=== PATIENT | male | born 1980 | race Two or more races ===

== ENCOUNTER 2024-08-11 23:19 | Emergency (ER) | payer BC, SELFPAY ==
[2024-08-12 00:05] LABS: % Basophils 0.2 % (0-2); % Eosinophils 0.6 % (0-6); % Immature Granulocytes 0.2 % (0-0.5); % Lymphocytes 17.3 % (20.5-51.1); % Monocytes 8.3 % (1.7-9.3); % Neutrophils 73.4 % (42.2-75.2); Absolute Eosinophils 0.1 10^3/uL (0-0.7); Absolute Lymphocytes 1.4 10^3/uL (1.2-3.4); Absolute Monocytes 0.7 10^3/uL (0.1-0.6); Absolute Neutrophils 5.9 10^3/uL (1.4-6.5); Hematocrit 41.4 % (39.0-52.0); Hemoglobin 14.3 g/dL (13.0-18.0); Mean Corp Hgb Conc. 34.5 g/dL (33.0-37.0); Mean Corpuscular Hgb 31.2 pg (27.0-31.0); Mean Corpuscular Volume 90.4 fL (80.0-94.0); Nucleated Red Blood Cells % 0 % (-); Platelet Count 178 10^3/uL (130-400); Red Blood Cell Count 4.58 10^6/uL (4.70-6.10); Red Cell Dist. Width 12.8 % (11.5-14.5)
[2024-08-12 00:23] LABS: ALT (SGPT) 31 U/L (0-50); AST (SGOT) 24 U/L (17-59); Albumin 4.6 g/dl (3.5-5.0); Alkaline Phosphatase 38 U/L (38-126); Blood Urea Nitrogen 17 mg/dl (9-20); Carbon Dioxide 28 mmol/L (22-30); Chloride 104 mmol/L (98-107); Glucose 148 mg/dl (70-99); Lipase 266 U/L (23-300); Potassium 3.7 mmol/L (3.5-5.1); Sodium 139 mmol/L (135-145); Total Bilirubin 1.2 mg/dl (0.2-1.3); Total Protein 7.3 g/dl (6.3-8.2); eGFR > 60.00
[2024-08-12 00:33] LABS: Troponin I < 0.012 ng/ml
[2024-08-12 03:03] VITALS: BP 115/80
[2024-08-12 04:00] VITALS: BP 111/79
[2024-08-12] MEDS: CARAFATE SUSPENSION 1 GM PO (04:04)
[2024-08-12 04:49] LABS: Troponin I < 0.012 ng/ml
--- NOTE | 2024-08-12 05:42 | ED.GENMED ---
History of Present Illness
General
Chief Complaint: Abdominal Pain
Time Seen by Provider: 08/12/24 03:28
Past History
Past History
ED Past Medical History: Other (Latent tuberculosis, rheumatoid arthritis)
ED Past Surgical History: Other (Perianal fistula)
Social History
Tobacco: Non-smoker
Alcohol: None
Drug: None
Sepsis
Sepsis Screen
Sepsis Screen: Possible Sepsis
Date: 08/12/24
Time: 05:42
Course
Orders/Labs/Results
Orders:
Orders
08/11/24 23:45
EKG [Electrocardiogram (*1)] Urgent
Reason for Study: Chest Pain
EKG- Treatment ONCE
08/11/24 23:59
Complete Blood Count/With Diff Urgent
Comprehensive Metabolic Panel Urgent
Lipase Urgent
Troponin I Urgent
08/12/24 03:48
Electrocardiogram (*1) Urgent
Reason for Study: Chest Pain
EKG- Treatment ONCE
Sucralfate Suspension [Carafate Suspension] 1 gm PO NOW STA
08/12/24 04:11
Troponin I Urgent
08/12/24 04:21
CR Abdomen - 1 View Urgent
Comment:
Reason For Exam: abd pain
CR Chest - 2 Views Urgent
Comment:
Reason For Exam: cp
08/12/24 04:50
US Abdomen Limited Urgent
Comment:
Reason For Exam: ruq abd pain
Abnormal Lab Results
08/11/24
23:59
RBC 4.58 L 10^6/uL
(4.70-6.10)
MCH 31.2 H pg
(27.0-31.0)
MPV 11.0 H fL
(7.4-10.4)
Absolute Monos (auto) 0.7 H 10^3/uL
(0.1-0.6)
Lymphocytes % 17.3 L %
(20.5-51.1)
Glucose 148 H mg/dl
(70-99)
08/11/24 23:59
08/11/24 23:59
Vital Signs
Initial and Last Documented VS:
Initial Vital Signs
Temp Pulse Resp Pulse Ox
99.7 F 80 18 100
08/11/24 23:39 08/11/24 23:39 08/11/24 23:39 08/11/24 23:39
Last Documented Vital Signs
Temp Pulse Resp BP Pulse Ox
99.7 F 61 20 115/80 98
08/11/24 23:39 08/12/24 03:45 08/12/24 03:45 08/12/24 03:03 08/12/24 03:45
Update Note
Update Note:
NAME: ENA GILLESPIE
DATE OF EXAM: 08/12/2024
Patient No: [id number]
Physician: ARIEL
Date of : 1980
Past Medical History (entered by Technologist):
Reason For Exam (entered by Technologist):
Other Notes (entered by Technologist):
Additional Information (per [facility]):
ULTRASOUND ABDOMEN LIMITED
COMPARISON: None
IMPRESSION:
Gallbladder is normal. No stones or wall thickening.
Sonographic Zarate's sign could not be assessed because the patient received pain medication prior to ultrasound.
Common bile duct measures 4 mm.
Liver echogenicity and echotexture are normal.
No hydronephrosis in the visualized right kidney.
Case results were faxed/electronically transmitted at [phone] EST. If there are any questions please feel free to contact me directly at [phone], ext [phone]. If you cannot reach me at this number, do not leave a voicemail. Please call [phone]
ext [phone] and ask for the next available radiologist.
ED Attending Note
-
Portions of this chart may have been created with voice recognition software.� Occasional wrong word or��sound alike� substitutions may have occurred due to the inherent limitations of voice recognition software.
Discharge Plan
Departure
Patient Disposition: Home (Routine Discharge)
Date of Disposition: 08/12/24
Time of Disposition: 05:42
Patient with high blood pressure during this ER visit?: No
Condition: Good
Discharge Problem:
Abdominal pain
Instructions: Abdominal Pain
Prescriptions:
New
sucralfate [Carafate] 100 mg/mL suspension
10 ml PO QID Qty: 200 0RF
Referrals:
UNKNOWN - PT DOES,NOT KNOW [Family Provider]
Activity Restrictions/Additional Instructions:
Thank You for choosing [facility].
It was a pleasure meeting you and taking part in your care. We hope for your continued healing and wellness.
Please read discharge instructions in their entirety. However, they are for general education and may not describe your exact diagnosis at discharge. Information on your ER visit and medical conditions were discussed with you along with appropriate
follow up information...
If indicated, please take your medications as instructed and indicated on discharge paperwork.
Please schedule a follow up appointment as directed. Call to schedule an appointment
Please return to the emergency department with ANY change in, persisting, or worsening of symptoms. If any of your symptoms do not improve, or persist, or become more severe within 6-12 hours, please return to the emergency department for further
care.
Please return to the emergency department if you develop a headache, neck pain/stiffness, fever greater than 100.4F, chest pain, shortness of breath, persistent nausea, vomiting, slurred speech, difficulty walking, numbness/tingling, weakness, signs
of infection or any other symptoms that are worrisome to you.
If you have any questions or concerns please do not hesitate to call the Hospital at or E-mail me directly at [email or web address]
Interventions
Interventions:
*Risk Screen - Suicide Last Done: 08/11/24 23:44
*General Assessment Last Done: 08/11/24 23:39
*Neglect/Abuse Screening Last Done: 08/12/24 02:53
*ED- Fall Risk Assessment Last Done: 08/12/24 02:53
*ED COVID-19 Vaccine History Last Done: 08/12/24 02:53
HY-Qplhco-Czmphtqnbm Assessment Last Done: 08/12/24 03:03
Discharge Date and Time
Print Language: MALIAN
== END 2024-08-12 05:56 | disposition home or self-care (01) ==
LOC: EMR 23:19
PROVIDERS: Emergency Medicine; EMERGENCY PHYSICIAN Student in an Organized Health Care Education/Training Program
DX: R10.11 Right upper quadrant pain (principal); M06.9 Rheumatoid arthritis, unspecified
CPT/HCPCS: 99284; 71046; 74018; 76705; 80053; 83690; 84484; 85025; 93005